=== PATIENT | male | born 1940 | race Caucasian/White ===

== ENCOUNTER → 2023-11-25 10:00 | Outpatient (REF) | payer MEDICARE, SELFPAY | LOC: RCS 10:00 | PROVIDERS: ATTENDING PHYSICIAN Internal Medicine Cardiovascular Disease; FAMILY PHYSICIAN Family Medicine | DX: R01.1 Cardiac murmur, unspecified (principal); I10 Essential (primary) hypertension | CPT/HCPCS: 93306 ==

== ENCOUNTER 2024-08-11 05:11 | Emergency (ER) | payer MEDICARE, SELFPAY ==
[2024-08-11 05:20] VITALS: BP 182/90
[2024-08-11 05:45] VITALS: BMI 30.8
[2024-08-11 06:07] VITALS: BP 106/61
--- NOTE | 2024-08-11 06:39 | ED.GENMED ---
History of Present Illness
General
Chief Complaint: Male Genito-Urinary Symptoms
Time Seen by Provider: 08/11/24 06:08
History of Present Illness
History of Present Illness:
83-year-old male with history of prostate cancer status post radiation in December presenting to the emergency department for retention. Patient notes that he last urinated around 4 PM yesterday. He has never had urinary retention. Does note
since he started radiation, has had some issues with hematuria and some burning. Reports generalized lower abdominal discomfort. Denies fever, chest pain, difficulty breathing. He has an upcoming appointment with his urologist tomorrow. Denies
additional acute medical complaints
Phy Exam
Physical Exam
Physical Exam:
General: Well-appearing, no clinical signs of dehydration, nontoxic and in no acute distress
HEENT: protecting airway
Neck: appears supple
CV: Normal heart rate, regular rhythm
Resp: No accessory muscle use, no increased work of breathing, lungs clear to auscultation bilaterally
Abd: Soft and non-distended, no tenderness to palpation (post-thurman insertion)
Extremities: No deformities, no swelling
Neuro: alert, no focal neurologic deficit
: deferred
Rectal: deferred
Psych: Normal affect
Skin: Intact
Course
Orders/Labs/Results
Orders:
Orders
08/11/24 05:45
Thurman [Thurman Placement- Treatment] ONCE
Reason for insertion: Acute Retention
08/11/24 05:50
Lidocaine 2% [Lidocaine Uro-Jet 2%] 1 syringe .ROUTE .[facility]
08/11/24 06:08
Urine Microscopic Reflex Cult Urgent
Urine Reflex Culture from UA [Urinalysis Reflex To Culture] Urgent
Date Specimen was Collected: 08/11/24
Time Specimen was Collected: 06:06
08/11/24 06:55
Complete Blood Count/With Diff Urgent
Comprehensive Metabolic Panel Urgent
Abnormal Lab Results
08/11/24 08/11/24
06:08 06:55
WBC 3.7 L 10^3/uL
(4.8-10.8)
RBC 4.00 L 10^6/uL
(4.70-6.10)
Hgb 12.5 L g/dL
(13.0-18.0)
Hct 36.8 L %
(39.0-52.0)
MCH 31.3 H pg
(27.0-31.0)
Abs Immat Gran (auto) 0.1 H 10^3/uL
(0-0.05)
Absolute Lymphs (auto) 0.4 L 10^3/uL
(1.2-3.4)
Immature Gran % 1.9 H %
(0-0.5)
Lymphocytes % 10.5 L %
(20.5-51.1)
Monocytes % 10.5 H %
(1.7-9.3)
Chloride 111 H mmol/L
(98-107)
BUN 25 H mg/dl
(9-20)
Glucose 198 H mg/dl
(70-99)
AST 15 L U/L
(17-59)
Total Protein 6.2 L g/dl
(6.3-8.2)
Ur Occult Blood Reflex 4+ A
(Negative)
Urine Albumin (Reflex) 2+ A
(Neg - Trace)
08/11/24 06:55
08/11/24 06:55
Vital Signs
Initial and Last Documented VS:
Initial Vital Signs
Temp Pulse Resp BP Pulse Ox
98.0 F 98 22 182/90 97
08/11/24 05:20 08/11/24 05:20 08/11/24 05:20 08/11/24 05:20 08/11/24 05:20
Last Documented Vital Signs
Temp Pulse Resp BP Pulse Ox
98.0 F 77 20 115/55 96
08/11/24 05:20 08/11/24 06:07 08/11/24 06:07 08/11/24 07:01 08/11/24 07:01
MDM/Problems Addressed
MDM/Problems Addressed:
83-year-old male with history of prostate cancer status post radiation presenting to the emergency department for retention. Vital signs are significant for hypertension, however resolved after Thurman catheter placed.
On initial examination, noted to be in discomfort, lower abdominal distention. Patient had a bladder scan by nursing staff, greater than 700 cc so a Thurman was placed. Patient notes that his symptoms have since resolved. Urine is draining clear.
Suspect retention likely from prostatic inflammation. Will send urinalysis obtain laboratory analysis and continue to monitor.
07:30 - Labs unremarkable. Known history of waldenstrom macroglobulinemia. Urine without sign of infection. Patient has appointment with urology tomorrow. Will maintain Thurman at this time and place like catheter. Otherwise stable for discharge.
Return precautions discussed.
*Critical Care Note
Total Time (30-74mins, 75-104mins- exclusive of procedures): Not Applicable
ED Attending Note
-
Portions of this chart may have been created with voice recognition software.� Occasional wrong word or��sound alike� substitutions may have occurred due to the inherent limitations of voice recognition software.
Discharge Plan
Departure
Referrals:
UNKNOWN - PT DOES,NOT KNOW [Family Provider]
Interventions
Interventions:
*Risk Screen - Suicide Last Done: 08/11/24 05:20
*General Assessment Last Done: 08/11/24 05:45
*Neglect/Abuse Screening Last Done: 08/11/24 05:45
*ED- Fall Risk Assessment Last Done: 08/11/24 05:45
*ED COVID-19 Vaccine History Last Done: 08/11/24 05:45
ED-Male Genitourinary Assessment Last Done: 08/11/24 07:09
Discharge Date and Time
Print Language: MALAY
[2024-08-11 06:53] LABS: Urine Albumin 2+ (Neg - Trace); Urine Bilirubin Negative (Negative); Urine Character Clear (Clear); Urine Color Yellow; Urine Glucose Negative (Negative); Urine Ketone Negative (Negative); Urine Leukocyte Negative (Negative); Urine Nitrite Negative (Negative); Urine Occult Blood 4+ (Negative); Urine Urobilinogen Negative (Neg - 1+); Urine pH 6.5 (5.0-9.0)
[2024-08-11 07:01] VITALS: BP 115/55
[2024-08-11 07:19] LABS: % Basophils 0.5 % (0-2); % Eosinophils 2.7 % (0-6); % Immature Granulocytes 1.9 % (0-0.5); % Lymphocytes 10.5 % (20.5-51.1); % Monocytes 10.5 % (1.7-9.3); % Neutrophils 73.9 % (42.2-75.2); Absolute Eosinophils 0.1 10^3/uL (0-0.7); Absolute Immature Granulocytes 0.1 10^3/uL (0-0.05); Absolute Lymphocytes 0.4 10^3/uL (1.2-3.4); Absolute Monocytes 0.4 10^3/uL (0.1-0.6); Absolute Neutrophils 2.8 10^3/uL (1.4-6.5); Hematocrit 36.8 % (39.0-52.0); Hemoglobin 12.5 g/dL (13.0-18.0); Mean Corpuscular Hgb 31.3 pg (27.0-31.0); Mean Platelet Volume 10.3 fL (7.4-10.4); Nucleated Red Blood Cells % 0 % (-); Platelet Count 147 10^3/uL (130-400); Red Cell Dist. Width 12.7 % (11.5-14.5); White Blood Cell Count 3.7 10^3/uL (4.8-10.8)
[2024-08-11 07:22] LABS: ALT (SGPT) 12 U/L (0-50); AST (SGOT) 15 U/L (17-59); Albumin 4.1 g/dl (3.5-5.0); Alkaline Phosphatase 53 U/L (38-126); Blood Urea Nitrogen 25 mg/dl (9-20); Calcium 9.6 mg/dl (8.4-10.2); Carbon Dioxide 22 mmol/L (22-30); Chloride 111 mmol/L (98-107); Estimated Creatinine Clearance 47 ml/min; Glucose 198 mg/dl (70-99); Potassium 4.3 mmol/L (3.5-5.1); Sodium 141 mmol/L (135-145); Total Bilirubin 0.9 mg/dl (0.2-1.3); Total Protein 6.2 g/dl (6.3-8.2); eGFR 54.51
[2024-08-11 07:38] LABS: Urine Red Blood Cell 16-20 /HPF (0-2)
[2024-08-11 07:39] LABS: Urine Bacteria Few (Negative)
[2024-08-11 08:00] VITALS: BP 126/58
[2024-08-11 09:21] VITALS: BP 125/68
== END 2024-08-11 08:45 | disposition home or self-care (01) ==
LOC: EMR 05:11
PROVIDERS: EMERGENCY PHYSICIAN Student in an Organized Health Care Education/Training Program
DX: R33.9 Retention of urine, unspecified (principal); Z85.46 Personal history of malignant neoplasm of prostate; Z92.3 Personal history of irradiation
CPT/HCPCS: 51702; 99283; 80053; 81003; 81015; 85025

== ENCOUNTER 2024-08-19 13:02 | Emergency (ER) | payer MEDICARE, SELFPAY ==
[2024-08-19 13:19] VITALS: BP 126/83
--- NOTE | 2024-08-19 13:40 | ED.GENMED ---
History of Present Illness
General
Chief Complaint: Male Genito-Urinary Symptoms
Source: patient
Exam Limitations: none
Time Seen by Provider: 08/19/24 13:40
Nursing documentation reviewed up to this point in time: agreed with
History of Present Illness
History of Present Illness:
83 yo male w h/o HTAN, HLD, chronic thurman catheter, NIDDM, Prostate CA under care of [facility], receiving HBOT at [facility] daily, on day today. During decent, about 1/[address] way through his 2Hr 40 min treatment, he
developed sudden onset 10/10 burning pain and pressure about the genital area from testicles to anus. This is gradually improving, worse with sitting, relieved with laying or standing. Pt states no pain now laying on stretcher. He is also concerned
his leg bag does not have as much urine in it as usual. Denies fever/chills, denies abdominal pain, n/v.
Past History
Past History
ED Past Medical History: Cancer (Prostate CA, last radiation tx January 2024), HTN, Hypercholesterolemia and NIDDM
Social History
Tobacco: Former smoker
Personal:
Living: with family
Employment: Retired
Review of Systems
Review of Systems
Allergies reviewed?: Yes
All Other Systems: ROS reviewed and negative except as documented in HPI and ROS
Constitutional: Denies fever or chills
Respiratory: Denies trouble breathing
Cardiac: Denies chest pain
ABD/GI: Denies abdominal pain, nausea, vomiting, diarrhea or anorexia
: Reports other (indwelling urinary catheter, per pt, less urine in bag than usual. ); Denies flank pain or bleeding
Musculoskeletal: Reports no symptoms
Skin: Reports no symptoms
Neurological: Reports no symptoms
Phy Exam
Physical Exam
Physical Exam:
GENERAL: No acute distress. A&Ox3.
CONSTITUTIONAL: Afebrile.
EYES: clear, conjunctivae normal
ENMT: moist mucus membranes, Pharynx nl
RESPIRATORY: Regular respirations, nonlabored, lungs clear.
CARDIOVASCULAR: Regular rate and rhythm, no murmurs, no rubs.
GI: Soft, nontender, normal BS
: Normal-appearing external genitalia and rectal areas
MUSCULOSKELETAL: Moves with ease. Well perfused.
SKIN: Warm, dry, pink
PSYCH: Normal mood and affect. Well kept, interactive and appropriate
NEUROLOGIC: Awake, alert and oriented. No focal neurological deficits
Course
Vital Signs
Initial and Last Documented VS:
Initial Vital Signs
Temp Pulse Resp BP Pulse Ox
98.5 F 88 16 126/83 98
08/19/24 13:19 08/19/24 13:19 08/19/24 13:19 08/19/24 13:19 08/19/24 13:19
Last Documented Vital Signs
Temp Pulse Resp BP Pulse Ox
98.5 F 69 26 122/72 95
08/19/24 13:19 08/19/24 14:30 08/19/24 14:30 08/19/24 14:29 08/19/24 14:30
MDM/Problems Addressed
Differential Diagnosis Includes:
barotrauma from HBOT, urine retention
MDM/Problems Addressed:
83 yo male w h/o HTAN, HLD, chronic thurman catheter, NIDDM, Prostate CA under care of [facility], receiving HBOT at [facility] daily, on today. During decent, about 1/[address] through his 2Hr 40 min treatment, he
developed sudden onset 10/10 burning pain and pressure about the genital area from testicles to anus. This is gradually improving, worse with sitting, relieved with laying or standing. Pt states no pain now laying on stretcher. He is also concerned
his leg bag does not have as much urine in it as usual. Denies fever/chills, denies abdominal pain, n/v.
Afebrile, NAD
Normal appearing genital and rectal areas.
Thurman draining well, clear kassi urine, bedside bladder scan revealing no residual urine.
Called Darlin at [facility] who explains: because of the pressures in the HBOT, some patients when they are ascending are prone to barotrauma, because it's vasoconstricting when you ascending, as you are coming down vessels go in
the opposite direction and dilate and pain is experienced. If there is any gas trapped in any areas of the body that can also expand and produce pain.
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
It is like a secondary cystitis due to radiation
Darlin explains HBOT goal is to revascularize the tissue and improve the tissue within the bladder
Darlin requests pt call [facility] Thursday a.m. if still in pain may hod HBOT until pt gets cystoscopy.
Pt refuses to go back to his Urologist and wants referred to [facility]
[place] texted Dr. Bo informing him of the situation and requested he see pt sooner rather than later.
spoke with bilingual medical receptionist at Dr. Bo's office and she will check with Dr. Bo and get back to .
Pt comfortable at discharge.
*Pulse Oximetry
SaO2: 98
Oxygen Mode of Delivery: Room air
*Critical Care Note
Total Time (30-74mins, 75-104mins- exclusive of procedures): Not Applicable
ED Attending Note
-
Portions of this chart may have been created with voice recognition software.� Occasional wrong word or��sound alike� substitutions may have occurred due to the inherent limitations of voice recognition software.
Discharge Plan
Departure
Patient Disposition: Home (Routine Discharge)
Date of Disposition: 08/19/24
Time of Disposition: 14:56
Patient with high blood pressure during this ER visit?: No
Condition: Good
Discharge Problem:
Pain of male genitalia
Instructions: How to Care for Your Thurman Catheter, Male
Referrals:
Darwin Bo MD [Active, Urology]
Juve Alcantara MD [Family Provider, Family Practice]
Activity Restrictions/Additional Instructions:
As discussed with Dr. Bo's manufacturing scheduler, they will contact you after speaking to him about an appointment.
I explained everything that Darlin from the [facility]OT Center told me was most likely the cause of your symptoms and since the pain is dissipating it should continue to improve. Tylenol as needed for pain.
Darlin explains: because of the pressures in the HBOT, some patients when they are ascending are prone to barotrauma, because it's vasoconstricting when you ascending, as you are coming down vessels go in the opposite direction and dilate and
pain is experienced. If there is any gas trapped in any areas of the body that can also expand and produce pain.
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
It is like a secondary cystitis due to radiation, can cause problems later with bleeding, hematuria.
Darlin explains HBOT will revascularize the tissue and improve the tissue within the bladder
Call the HBOT Center Thursday and let Narendra know how you are doing.
Interventions
Interventions:
*Risk Screen - Suicide Last Done: 08/19/24 13:48
*General Assessment Last Done: 08/19/24 14:32
*Neglect/Abuse Screening Last Done: 08/19/24 13:48
*ED- Fall Risk Assessment Last Done: 08/19/24 14:32
*ED COVID-19 Vaccine History Last Done: 08/19/24 13:19
*Nursing Disposition Last Done: 08/19/24 15:27
ED-Male Genitourinary Assessment Last Done: 08/19/24 13:48
Discharge Date and Time
Discharge Date/Time: 08/19/24 15:28
Print Language: INDONESIAN
[2024-08-19 14:29] VITALS: BP 122/72
== END 2024-08-19 15:28 | disposition home or self-care (01) ==
LOC: EMR 13:02
PROVIDERS: EMERGENCY PHYSICIAN Emergency Medicine; FAMILY PHYSICIAN Family Medicine
DX: N50.812 Left testicular pain (principal); N50.811 Right testicular pain; K62.89 Other specified diseases of anus and rectum; C61 Malignant neoplasm of prostate; E11.9 Type 2 diabetes mellitus without complications; E78.00 Pure hypercholesterolemia, unspecified; I10 Essential (primary) hypertension; Z87.891 Personal history of nicotine dependence
CPT/HCPCS: 99283; 51798